=== PATIENT | female | born 1975 | race Caucasian/White ===

== ENCOUNTER → 2018-02-05 16:09 | Outpatient (CLI) | payer OTHER, SELFPAY ==
--- NOTE | 2018-02-05 16:14 | CT_ITS ---
STUDY: CT ABDOMEN AND PELVIS WITH CONTRAST REASON FOR EXAM: Female, 42 years old. Abdominal pain, nausea RADIATION DOSAGE (If Supplied By Facility): CTDIvol = ( 18.98 ) mGy, DLP = ( 1051.23 ) mGycm TECHNIQUE: Transaxial images were obtained from the dome of the diaphragm to the symphysis pubis without oral contrast. 100mL ml of Isovue 300 contrast was administered. Sagittal and coronal images were reconstructed. Individualized dose optimization techniques were used for this CT. COMPARISON: None. FINDINGS: The visualized lung bases are unremarkable. The visualized portions of the heart are within normal limits. Normal liver. Normal gallbladder and extrahepatic biliary system. Normal spleen. Normal pancreas. Normal bilateral adrenal glands. Normal right kidney. Normal left kidney. Normal visualized stomach. Normal small intestine. Mild diffuse fecal retention in the colon. The appendix is visualized and appears normal. Normal abdominal aorta. Normal inferior vena cava. Normal retroperitoneum. Normal urinary bladder. Normal uterus. Small fatty umbilical hernia. Normal osseous structures. CT/Abdomen/Pelvis WITH Contrast IMPRESSION: Small fatty umbilical hernia. Fecal retention of the colon. Electronically Signed: Jarrett Waldrop DO at 22:56 EDT Tel [phone], Service support ,
== END ==
PROVIDERS: Family Provider Family Medicine; PCP Family Medicine; Visit Provider Surgery
DX: R10.9 Unspecified abdominal pain (principal)
CPT/HCPCS: 74177; Q9967

== ENCOUNTER 2019-04-08 13:46 | Emergency (ER) | payer OTHER, SELFPAY ==
[2019-04-08 13:47] VITALS: BP 126/72; PULSE 83; RESP 16; TEMP 36.8; O2SAT 98; BMI 43.4
--- NOTE | 2019-04-08 14:09 | CT_ITS ---
STUDY: CT BRAIN WITHOUT CONTRAST REASON FOR EXAM: Female, 43 years old. Laceration along the posterior aspect of the skull secondary to a fall. RADIATION DOSAGE (If Supplied By Facility): CTDIvol = ( 44.99 ) mGy, DLP = ( 812.98 ) mGycm TECHNIQUE: Transaxial CT imaging of the brain was performed without administration of intravenous contrast material. Individualized dose optimization techniques were used for this CT. COMPARISON: No relevant priors. FINDINGS: Normal soft tissue structures. Normal calvarium. Normal size ventricles and extra-axial spaces for the patient's age. Normal white matter tracts of the cerebral hemispheres. Normal basal ganglia and thalami. Normal brainstem. Normal cerebellum. There is no intracranial hemorrhage. There are no findings of an acute ischemic infarction. Normal visualized paranasal sinuses. CT/Brain/Head without Contrast IMPRESSION: Normal unenhanced CT scan of the brain. Electronically Signed: Doroteo Aggarwal, at 15:04 EDT , Service support ,
--- NOTE | 2019-04-08 14:59 | ED.VIS.GEN ---
History of Present Illness Chief Complaint: Head Injury Informant: Patient Narrative: Patient presents after a head injury last night she did have a loss of consciousness. She has a right contusion and posterior contusion 2. She wanted to follow-up with PCP but was sent to the emergency department. She has no neck pain or any other injury. This happened while on the playground with her nephew. It was mechanical. Past Medical History - Allergies and Home Meds Allergies/Adverse Reactions: Allergies z-pack Allergy (Intermediate, Uncoded 04/08/19 13:47) cramps/diarrhea Primary Care Physician: Niall Lovell MD [Primary Care Provider] - Past Medical History: - - Noncontributory Surgical History: noncontributory Smoking Status: Never smoker Review of Systems All systems negative except as indicated General: Reports: - - Loss of consciousness after head injury as in HPI Eyes: Denies: Visual changes - bilaterally Cardiovascular: Denies: Chest pain Respiratory: Denies: Dyspnea Gastrointestinal: Denies: Abdominal pain Skin: Denies: Rash Neurological: Denies: Headache Hematologic: Denies: Easy bruising Physical Exam Vital Signs/Narrative: Vital Signs Temp Pulse Resp BP Pulse Ox 04/08/19 13:47 98.3 F 83 16 126/72 H 98 General: Well nourished Head: - - Abrasion right side of the scalp temporal region there is also posterior contusion. Eyes: Perrl ENT: Moist mucous membranes Cardiovascular: Regular rate Respiratory: No distress Abdomen: Soft Back: Nontender Extremities: No edema Skin: Normal color Neurological: Alert Diagnostic/Tx/Re-eval - Medical Decision Making CT head is unremarkable, she has a concussion she will be treated as such. Disposition discharge stable condition ED Disposition - Plan for ED Patient: [facility] Diagnosis: Concussion wth loss of consciousness of 30 minutes or less Instructions: CONCUSSION, No Wake Up Referrals: Niall Lovell MD [Primary Care Provider] - 3-5 Days
--- NOTE | 2019-04-08 15:18 | ED.RN ---
DISCHARGE INSTRUCTIONS GIVEN TO AND REVIEWED WITH PATIENT, PATIENT DENIES QUESTIONS OR CONCERNS AND VOICES UNDERSTANDING OF DISCHARGE INSTRUCTIONS. PT AMBULATES OUT OF ROOM WITHOUT DIFFICULTY.
== END 2019-04-08 15:19 | disposition designated cancer center or children's hospital (05) ==
PROVIDERS: Emergency Provider Emergency Medicine; Family Provider Family Medicine; PCP Family Medicine
DX: S06.0X1A Concussion with loss of consciousness of 30 minutes or less, initial encounter (principal); X58.XXXA Exposure to other specified factors, initial encounter; Y93.89 Activity, other specified; Y92.830 Public park as the place of occurrence of the external cause; Y99.9 Unspecified external cause status
CPT/HCPCS: 70450; 99283

== ENCOUNTER → 2020-10-13 14:33 | Outpatient (CLI) | payer OTHER, SELFPAY | PROVIDERS: PCP Family Medicine; Referring Provider Otolaryngology; Visit Provider Otolaryngology | DX: Z11.59 Encounter for screening for other viral diseases (principal); Z03.818 Encounter for observation for suspected exposure to other biological agents ruled out | CPT/HCPCS: 87635; C9803; U0002 ==